=== PATIENT | female | born 2000 | race African-American/Black ===

== ENCOUNTER 2020-05-10 09:54 | Inpatient (IN) | payer OTHER, MEDICAID ==
[~2020-05-10] VITALS: Ht 170.2 cm; Wt 114.8 kg
[2020-05-10] MEDS ORDERED: ACYCLOVIR PO (10:22)
[2020-05-10] MEDS ORDERED: PREN-55 MT (10:22)
[2020-05-10] MEDS ORDERED: METHYLERGONOVINE MALEATE 0.2 MG/ML IM PRN (10:30)
[2020-05-10] MEDS ORDERED: LIDOCAINE HCL 1% 20ML VIAL (Pyxis) INJ INFIL SCH (10:30)
[2020-05-10] MEDS ORDERED: MISOPROSTOL 100MCG TABLET VG SCH (10:30)
[2020-05-10] MEDS ORDERED: CARBOPROST TROMETHAMINE 250 MCG/ML AMPUL IM PRN (10:30)
[2020-05-10] MEDS ORDERED: NALOXONE HCL 0.4 MG/ML 1ML VIAL IM PRN (10:30)
[2020-05-10] MEDS ORDERED: DEXT 5%/LR + PITOCIN 20UNITS/L 1,000 ML IV SCH (10:30)
[2020-05-10] MEDS ORDERED: PENICILLIN G POTASSIUM 5 MMU in DEXT 5% WATER 100 ML IV SCH (11:00)
[2020-05-10 12:09] LABS: BASOPHILS % 0.3 % (0.0-2.0); CLARITY URINE CLEAR (CLEAR); COLOR URINE YELLOW (YELLOW); EOSINOPHILS % 0.3 % (0.0-5.0); HEMATOCRIT. 39.3 % (36.0-48.0); HEMOGLOBIN. 13.1 g/dL (12.0-16.0); KETONES URINE NEGATIVE (NEGATIVE); LEUKOCYTE ESTERASE URINE 1+ (NEGATIVE); LYMPHOCYTES % 13.4 % (20.0-50.0); MEAN CORPUSCULAR HEMOGLOBIN 29.6 pg (28.0-32.0); MEAN PLATELET VOLUME 9.3 fl (7.4-10.4); MONOCYTES % 9.3 % (2.0-8.0); NEUTROPHILS % 76.7 % (40.0-76.0); NITRITE URINE NEGATIVE (NEGATIVE); OCCULT BLOOD URINE NEGATIVE (NEGATIVE); PH URINE 7.5 (4.5-8.0); PLATELET 135 x1000/uL (130-400); PROTEIN URINE NEGATIVE (NEGATIVE); RED BLOOD CELL COUNT 4.41 mill/uL (4.2-5.4); RED CELL DISTRIBUTION WIDTH 16.5 % (11.6-14.6); SPECIFIC GRAVITY URINE 1.009 (1.005-1.030); UROBILINOGEN URINE 0.2 E.U./dL (0.2-1.0)
[2020-05-10 12:23] LABS: PARTIAL THROMBOPLASTIN TIME 25.9 sec (23.4-31.0); PROTHROMBIN TIME 10.1 sec (9.6-11.0)
[2020-05-10 12:26] LABS: *BARBITURATES SCREEN URINE NEGATIVE (NEGATIVE)
[2020-05-10 12:27] LABS: *BENZODIAZEPINES SCREEN URINE NEGATIVE (NEGATIVE); *COCAINE SCREEN URINE NEGATIVE (NEGATIVE); CANNABINOID URINE SCREEN NEGATIVE (NEGATIVE); METHADONE URINE SCREEN NEGATIVE (NEGATIVE); OPIATES URINE SCREEN NEGATIVE (NEGATIVE); PHENCYCLIDINE URINE SCREEN NEGATIVE (NEGATIVE)
[2020-05-10 12:28] LABS: *AMPHETAMINES SCREEN URINE NEGATIVE (NEGATIVE)
[2020-05-10 12:59] LABS: HEPATITIS B SURFACE ANTIGEN NEGATIVE
[2020-05-10] MEDS: BUTORPHANOL TARTRATE 2 MG/ML VIAL IV PRN (14:31)
[2020-05-10] MEDS: LACTATED RINGERS 1,000 ML IV SCH ×3 (14:31→20:47)
[2020-05-10] MEDS: PENICILLIN G POTASSIUM 2.5 MMU in DEXTROSE 5% WATER 50 ML IV SCH (20:15)
[2020-05-11] MEDS: PENICILLIN G POTASSIUM 2.5 MMU in DEXTROSE 5% WATER 50 ML IV SCH ×4 (00:16→12:55)
[2020-05-11] MEDS ORDERED: MISOPROSTOL 100MCG TABLET PO SCH (00:30)
[2020-05-11] MEDS: LACTATED RINGERS 1,000 ML IV SCH (03:46)
[2020-05-11] MEDS: BUTORPHANOL TARTRATE 2 MG/ML VIAL IV PRN (04:50)
[2020-05-11] MEDS ORDERED: LIDOCAINE HCL 2%/EPINEPHRINE 1:100,000 20 ML VIAL INFIL ONE (08:00)
[2020-05-11] MEDS ORDERED: ROPIVACAINE HCL/PF EPIDURAL 200 ML EPI SCH (08:00)
[2020-05-11] MEDS ORDERED: LIDOCAINE HCL 1% 20ML VIAL (Pyxis) INJ INFIL SCH (19:00)
[2020-05-11] MEDS ORDERED: CARBOPROST TROMETHAMINE 250 MCG/ML AMPUL IM PRN (19:00)
[2020-05-11] MEDS ORDERED: NALOXONE HCL 0.4 MG/ML 1ML VIAL IM PRN (19:00)
[2020-05-11] MEDS ORDERED: METHYLERGONOVINE MALEATE 0.2 MG/ML IM PRN (19:00)
[2020-05-11] MEDS ORDERED: PENICILLIN G POTASSIUM 2.5 MMU in DEXTROSE 5% WATER 50 ML IV SCH (20:00)
[2020-05-11] MEDS ORDERED: GLYCERIN/WITCH HAZEL LEAF MEDICATED PAD TOP PRN (20:30)
[2020-05-11] MEDS ORDERED: IBUPROFEN 400MG TABLET PO PRN (20:30)
[2020-05-11] MEDS ORDERED: BISACODYL 10MG SUPP PR PRN (20:30)
[2020-05-11] MEDS ORDERED: DEXT 5%/LR + PITOCIN 20UNITS/L 1,000 ML IV SCH (20:30)
[2020-05-11] MEDS ORDERED: LANOLIN OINT 7GM TUBE TOP PRN (20:30)
[2020-05-11] MEDS ORDERED: DIPHENHYDRAMINE 25MG CAPSULE PO PRN (20:30)
[2020-05-11] MEDS ORDERED: ACETAMINOPHEN WITH CODEINE 300/30MG TABLET PO PRN (20:30)
[2020-05-11] MEDS ORDERED: HEMORRHOIDAL SUPP PR PRN (20:30)
[2020-05-11 22:00] VITALS: BP 150/89
[2020-05-11] MEDS: BENZOCAINE/LANOLIN/ALOE VERA SPRAY TOP PRN (22:26)
[2020-05-11] MEDS: SIMETHICONE 80MG TABLET CHEW PO SCH (22:27)
[2020-05-11] MEDS: DOCUSATE SODIUM 100MG CAPSULE PO SCH (22:27)
[2020-05-11] MEDS: MAGNESIUM/ALUMINUM HYDROXIDE/SIMETHICONE 30ML UDC PO SCH (22:27)
[2020-05-11] MEDS: IBUPROFEN 800MG TABLET PO PRN (22:29)
[2020-05-11 22:30] VITALS: BP 149/94
[2020-05-11 23:02] VITALS: BP 146/99
[2020-05-11 23:29] VITALS: BP 145/99
[2020-05-12 04:18] VITALS: BP 143/98
[2020-05-12] MEDS ORDERED: FERROUS SULFATE 325MG TABLET PO SCH (07:30)
[2020-05-12] MEDS: IBUPROFEN 800MG TABLET PO PRN ×2 (07:58→20:15)
[2020-05-12] MEDS: PRENATAL VIT/FE FUMARATE/FA TABLET PO SCH (07:58)
[2020-05-12 08:30] VITALS: BP 114/66
[2020-05-12 08:38] LABS: BASOPHILS % 0.4 % (0.0-2.0); EOSINOPHILS % 0.2 % (0.0-5.0); HEMATOCRIT. 34.8 % (36.0-48.0); HEMOGLOBIN. 11.6 g/dL (12.0-16.0); LYMPHOCYTES % 8.7 % (20.0-50.0); MEAN CORPUSCULAR HEMOGLOBIN 29.2 pg (28.0-32.0); MEAN CORPUSCULAR VOLUME 88.1 fL (81.0-99.0); MEAN PLATELET VOLUME 9.1 fl (7.4-10.4); MONOCYTES % 8.1 % (2.0-8.0); NEUTROPHILS % 82.6 % (40.0-76.0); PLATELET 142 x1000/uL (130-400); RED BLOOD CELL COUNT 3.95 mill/uL (4.2-5.4); RED CELL DISTRIBUTION WIDTH 16.1 % (11.6-14.6)
[2020-05-12 16:12] VITALS: BP 124/60
[2020-05-12 20:00] VITALS: BP 108/57
[2020-05-12] MEDS: SIMETHICONE 80MG TABLET CHEW PO SCH (20:14)
[2020-05-12] MEDS: DOCUSATE SODIUM 100MG CAPSULE PO SCH (20:14)
[2020-05-12] MEDS: LABETALOL HCL 100MG TABLET PO SCH (21:00)
[2020-05-13 04:00] VITALS: BP 115/60
[2020-05-13] MEDS: BENZOCAINE/LANOLIN/ALOE VERA SPRAY TOP PRN (04:41)
[2020-05-13] MEDS: IBUPROFEN 800MG TABLET PO PRN (04:42)
[2020-05-13 07:45] VITALS: BP 112/68
[2020-05-13 07:58] LABS: HEMATOCRIT 28.7 % (36.0-48.0); HEMOGLOBIN 9.2 g/dL (12.0-16.0); MEAN CORPUSCULAR HEMOGLOBIN 29.2 pg (28.0-32.0); MEAN CORPUSCULAR VOLUME 90.5 fL (81.0-99.0); PLATELET 122 x1000/uL (130-400); RED BLOOD CELL COUNT 3.17 mill/uL (4.2-5.4); RED CELL DISTRIBUTION WIDTH 16.3 % (11.6-14.6)
[2020-05-13] MEDS ORDERED: IBUP-2030 PO (08:08)
[2020-05-13] MEDS: PRENATAL VIT/FE FUMARATE/FA TABLET PO SCH (10:41)
[2020-05-13] MEDS: MAGNESIUM/ALUMINUM HYDROXIDE/SIMETHICONE 30ML UDC PO SCH (10:41)
[2020-05-13] MEDS: SIMETHICONE 80MG TABLET CHEW PO SCH (10:42)
[2020-05-13] MEDS: LABETALOL HCL 100MG TABLET PO SCH (10:42)
== END 2020-05-13 13:30 | disposition home or self-care (01) | DRG 806 ==
LOC: 8 EST LDRP 09:54 → OBSVTOIN 09:54 → 8EST 05-11 22:07
PROVIDERS: ADMIT Obstetrics & Gynecology; ATTEND Obstetrics & Gynecology
PROC: 10E0XZZ Delivery of Products of Conception, External Approach (ICD-10-PCS; principal; 2020-05-10)
PROC: 0KQM0ZZ Repair Perineum Muscle, Open Approach (ICD-10-PCS; 2020-05-10)
DX: O99.12 Other diseases of the blood and blood-forming organs and certain disorders involving the immune mechanism complicating childbirth (principal); D62 Acute posthemorrhagic anemia; Z37.0 Single live birth; O99.02 Anemia complicating childbirth; D72.829 Elevated white blood cell count, unspecified; O70.1 Second degree perineal laceration during delivery; Z3A.40 40 weeks gestation of pregnancy
CPT/HCPCS: 36415; 76805; 80305; 81003; 85025; 85027; 86592; 86703; 86762; 86850; 86900; 87340; 99281; J0595; J2210; J2540; J2590; J2795; J3490; J7060; J7120